=== PATIENT | male | born 1955 | race Caucasian/White ===

== ENCOUNTER 2020-04-15 22:00 | Emergency (ER) | payer OTHER ==
[~2020-04-15] VITALS: Ht 172.7 cm; Wt 86.2 kg
[2020-04-15 22:01] VITALS: BP 158/90
--- NOTE | 2020-04-15 22:01 | NUR ---
ANGELY LOZADA, TAKEN TO CHAIR A
--- NOTE | 2020-04-15 22:15 | NUR ---
PATIENT BIB [facility]. PATIENT EXAMINED BY DR. ROOT. PATIENT MEDICALLY CLEARED AND RELEASED IN CUSTODY IN STABLE CONDITION. ORIGINAL PRE-BOOK FORM GIVEN TO OFFICER BANDAR, #[id number].
== END 2020-04-15 22:15 ==
LOC: MED 22:00
DX: M79.604 Pain in right leg (principal); Z02.89 Encounter for other administrative examinations
CPT/HCPCS: 99283